=== PATIENT | male | born 1995 | race Caucasian/White ===

== ENCOUNTER 2020-06-27 11:06 | Emergency (ER) | payer OTHER ==
[~2020-06-27] VITALS: Ht 170.2 cm; Wt 82.7 kg
[2020-06-27] MEDS ORDERED: ACET500P3 PO (11:16)
[2020-06-27] MEDS ORDERED: ACETAMINOPHEN 500 MG TAB PO ONE (11:55)
--- NOTE | 2020-06-27 12:16 | REP ---
INDICATION: R knee pain COMPARISON: None. TECHNIQUE: Five views right knee. FINDINGS: There is no evidence of acute fracture, dislocation, or intrinsic bone disease.The joint spaces are normal. There may be a very small suprapatellar effusion. IMPRESSION: No fracture or dislocation. Normal joint spaces. Possible small suprapatellar effusion. <Electronically signed by Sidney Estrella > 06/27/20 [id number]
[2020-06-27 12:55] VITALS: BP 131/84
== END 2020-06-27 13:12 | disposition home or self-care (01) ==
LOC: M ED 11:06
DX: S83.91XA Sprain of unspecified site of right knee, initial encounter (principal); M25.461 Effusion, right knee; X50.0XXA Overexertion from strenuous movement or load, initial encounter; Y92.019 Unspecified place in single-family (private) house as the place of occurrence of the external cause; Y93.9 Activity, unspecified; Y99.9 Unspecified external cause status; Z87.442 Personal history of urinary calculi; Z91.041 Radiographic dye allergy status